=== PATIENT | female | born 1930 | race Caucasian/White ===

== ENCOUNTER 2016-08-20 15:36 | Emergency (ER) | payer MEDICARE, OTHER ==
[~2016-08-20] VITALS: Ht 162.6 cm; Wt 68.2 kg
[2016-08-20 15:39] VITALS: BP 152/79; PULSE 97; RESP 16; O2SAT 94
[2016-08-20] MEDS ORDERED: LEVO88TA4 PO (15:43)
[2016-08-20] MEDS ORDERED: AMT50T PO (15:43)
[2016-08-20] MEDS ORDERED: ATOR10TA66 PO (15:43)
[2016-08-20] MEDS ORDERED: 0.9% Sodium Chloride 1,000 ML IV ONE (17:33)
[2016-08-20 18:02] LABS: APPEARANCE,URINE CLEAR (CLEAR,HAZY); COLOR,URINE YELLOW (YELLOW); OCCULT BLOOD,URINE NEGATIVE (NEGATIVE); PH,URINE 5.5 (5.0-8.0); UROBILINOGEN,URINE NORMAL (NORMAL)
--- NOTE | 2016-08-20 18:17 | ED.REPORT ---
HPI-Abd Pain F 40 and Over Date of Service Aug 20, 2016 ED Provider: Dr. Davey Valentin D.O. An 85 year old female with a medical history including diverticulitis, hypertension, and hyperlipidemia presents to the ED with sharp LLQ abdominal pain onset 1600 yesterday afternoon. The patient also reports problems with chronic constipation. She denies nausea, vomiting, or other symptoms. The patient had an annual exam with her PCP last week, with normal blood work obtained. Her pain was moderately relieved with a bowel movement in the ED. Nursing Notes Stated Complaint: LEFT LOWER ABDOMINAL PAIN Chief Complaint: Female Abdominal Pain Nursing Notes Reviewed: Yes Allergies: Coded Allergies: codeine (Verified Allergy, Unknown, 08/20/16) Nightmares morphine (Verified Allergy, Unknown, 08/20/16) Pain in stomach Scheduled Amitriptyline (Amitriptyline) 50 Mg Tab 25 MG PO HS Atorvastatin Calcium (Atorvastatin Calcium) 10 Mg Tablet 10 MG PO DAILY Levothyroxine (Levothyroxine) 88 Mcg Tablet 88 MCG PO DAILY General Time Seen by MD: 18:17 Chief Complaint Abdominal pain Hx Obtained From: Patient Arrived By: Walk-in Sudden in Onset?: No Onset Occurred: Yesterday Symptom Duration: Since onset Location: : LLQ Quality: Painful Severity: Current: Moderate Severity: Maximum: Moderate Associated with: Reports: Constipation Pertinent Negative: Pt denies other symptoms Pertinent Negative: Relieved by nothing Context Related History: Reports: Abdominal surgery, Diverticulosis Recent Healthcare: Recent doctor visit Past Medical History Past Medical History Diverticulitis Hyperlipidemia TIA Cancer Hypertension Past Surgical History Tonsillectomy Cholecystectomy Breast Appendectomy Smoking History Never Smoker Social History Other Social History: From out of town, Local resident Ambulatory Status Independent Review of Systems Constitutional: Denies: Fever Respiratory: Denies: Non-productive cough, Shortness of breath GI: Reports: Abdominal pain (LLQ), Constipation (Chronic), Denies: Nausea, Vomiting Complete sys rev & neg: except as marked. Physical Exam Vital Signs Vital Signs (First) Date Time Temp Pulse Resp B/P Pulse Ox O2 Delivery O2 Flow Rate FiO2 08/20/16 15:39 36.4 97 16 152/79 94 Room Air Initial VS: Reviewed Head / Eyes: Atraumatic, Normocephalic ENT: Conjunctiva normal, No scleral icterus Neck: Supple, Full range of motion Skin: Warm, Dry, No cyanosis Neurologic: Alert, Oriented, Nonfocal Psychiatric: Mood/affect normal, Behavior normal, Normal thought content General/Constitutional: Awake, Alert, No acute distress Respiratory / Chest: Breath sounds NL, Breath sounds = bilat, No respiratory distress Cardiovascular: Heart rate NL, Regular rhythm, Heart sounds NL Abdomen: Soft Tenderness/Guarding/Rebound: Positive: Tender LLQ... Interpretation & Diagnostics Lab Results Interpretation Result Diagram: 08/20/16 1750 08/20/16 1750 Test 08/20/16 17:35 08/20/16 17:50 Urine Color Yellow (YELLOW) Urine Appearance Clear (CLEAR,HAZY) Urine pH 5.5 (5.0-8.0) Urine Specific [place] 1.020 (1.003-1.035) Urine Protein Negativemg/dL (NEG,TRACE) Urine Glucose (UA) Negativemg/dL (NEGATIVE) Urine Ketones Tracemg/dL (NEGATIVE) Urine Occult Blood Negative (NEGATIVE) Urine Nitrite Negative (NEGATIVE) Urine Bilirubin Negative (NEGATIVE) Urine Urobilinogen Normalmg/dL (NORMAL) Urine Leukocyte Esterase Small (NEGATIVE) Urine RBC 0-2/hpf (0-2) Urine WBC 6-10/hpf (0-5) Urine Epithelial Cells Moderate/hpf (NONE-MOD) Urine Crystals None seen (NONE SEEN) Urine Bacteria Few/hpf (NONE-FEW) Urine Hyaline Casts None/lpf (NONE) Urine Granular Casts None seen (NONE SEEN) Urine Waxy Casts None seen (NONE SEEN) Urine Red Blood Cell Casts None seen (NONE SEEN) Urine White Blood Cell Casts None seen (NONE SEEN) Urine Mucus None seen (None Seen) Urine Trichomonas None seen (NONE SEEN) Urine Yeast None (NONE SEEN) Urinalysis Comment None Urine Culture Reflexed Indicated White Blood Count 9.4th/mm3 (3.8-10.1) Red Blood Count 4.42mil/mm3 (3.90-5.20) Hemoglobin 14.0g/dL (12.0-15.6) Hematocrit 42.4% (35.0-46.0) Mean Corpuscular Volume 95.9fL (81-100) Mean Corpuscular Hemoglobin 31.7pg (27.0-35.0) Mean Corpuscular Hemoglobin Concent 33.0% (32.0-37.0) Red Cell Distribution Width 13.5% (12.3-15.4) Platelet Count 154bil/L (150-400) Neutrophils (%) (Auto) 65.4% (40-74) Lymphocytes (%) (Auto) 20.6% (14-46) Monocytes (%) (Auto) 12.3% (4-12) Eosinophils (%) (Auto) 1.2% (0-5) Basophils (%) (Auto) 0.2% (0-3) Sodium Level 137mEq/L (134-144) Potassium Level 3.9mEq/L (3.5-5.2) Chloride Level 99mEq/L (97-108) Carbon Dioxide Level 22mmol/L (18-29) Blood Urea Nitrogen 28mg/dL (8-27) Creatinine 1.24mg/dL (0.57-1.00) Estimat Glomerular Filtration Rate 59mL/min (>59) Glucose Level 110mg/dL (60-99) Calcium Level 9.9mg/dL (8.5-10.1) Magnesium Level 2.1mg/dL (1.6-2.6) Total Bilirubin 0.4mg/dL (0.0-1.2) Aspartate Amino Transf (AST/SGOT) 19U/L (0-50) Alanine Aminotransferase (ALT/SGPT) 14U/L (0-32) Alkaline Phosphatase 135U/L (25-165) Total Protein 7.1g/dL (6.4-8.4) Albumin 3.7g/dL (3.4-5.0) Lipase 18U/L (13-60) Hold Richardson Top Tube Received (Received) CT Abd / Pelvis Interpretation IMPRESSION: 1. Mild diverticulitis in the proximal sigmoid colon without evidence of diverticular abscess or macroscopic free air. 2. Small hiatal hernia. 3. Small 2 mm nonobstructing right renal stone. Dictated by: Gary Skinner M.D. on 08/20/2016 at 21:28 Study type: Abdominal CT no contrast Interpretation / Wet Read by: Interpret - Radiologist Re-Eval/Medical Decision Med Decision/Clinical Course Acute diverticulitis is seen on the CT scan. No perforation, abscess or free air. I discussed this with Shelbi initially I recommended admission. She states she feels much better when like to go home. She does agree to have follow-up within 48 hours. She has a normal white count. She is afebrile. Her abdomen is soft and is really no longer tender. She is not vomiting. I think that she is a good candidate for outpatient treatment. She did receive the first dose of IV antibiotics and emergency department. She was sent home with a dose of Cipro and Flagyl to be taken first thing in the morning and then a prescription for full 7 day course. I have her phone number I will call her tomorrow. Otherwise she is going to call her primary care to set up a follow- up for the next 48 hours. She is discharged home with a short course of [place] for pain with routine opiate warnings. She will also be a stool softener. If she has any problems come back to emergency department. Re-Evaluation/Progress : Time of Eval: 22:47 Patient Status: Condition improved Re-Evaluation/Progress Note: Discussed with patient CT and lab results, diagnosis, and plan for discharge. Follow-up and return to the ER instructions given. Patient agrees with plan for care and all questions were addressed. Counseled Regarding: Diagnosis, Lab results, Need for follow-up, When/why to return to ED Discharge & Departure Shift Change Sign-Out Response to Therapy: Improved Primary Impression: Diverticulitis Diverticulitis site: large intestine Diverticulitis bleeding: without bleeding Diverticulitis complication: without perforation or abscess Qualified Code: K57.32 - Diverticulitis of large intestine without perforation or abscess without bleeding Disposition: Home Discharge Condition All VS Reviewed: Yes Condition: Improved Patient Instructions: Diverticulitis (ED) Additional Instructions: Thank you for entrusting us with your care. Cipro twice daily for seven days, as prescribed. Flagyl three times daily for seven days, as prescribed. 1-2 [place] every six hours as needed for pain. Do not drink alcohol, drive, or consume acetaminophen while taking [place]. Begin using a stool softener and increase the fiber in your diet. Your labs indicated you were dehydrated. Please increase your liquid intake. You need to be seen in follow-up within 2-3 days. Call your primary care provider tomorrow for a follow-up appointment. Return to the ER with any new or worsening symptoms including fever, vomiting, or worsening pain. Referrals: Markos Reyes MD (PCP) Scribe Attestation Portions of this note were transcribed by Yvette Pereira. I, Dr. Valentin, personally performed the history, physical exam, and medical decision-making; I reviewed and confirmed the accuracy of the information in the transcribed note. Signed by: Zenobia Weston, 08/20/2016, 23:20 copies to: Markos Reyes MD, Todd P DO Aug 20, 2016 18:17 YVETTE PEREIRA Aug 20, 2016 18:24
[2016-08-20 18:45] LABS: BASOPHILS % (AUTO) 0.2 % (0-3); EOSINOPHILS % (AUTO) 1.2 % (0-5); MONOCYTES % (AUTO) 12.3 % (4-12); Mean Corpuscular Hemoglobin 31.7 pg (27.0-35.0); Mean Corpuscular Volume 95.9 fL (81-100); NEUTROPHILS % (AUTO) 65.4 % (40-74); Platelet Count 154 bil/L (150-400)
[2016-08-20 19:05] LABS: Magnesium 2.1 mg/dL (1.6-2.6)
[2016-08-20] MEDS ORDERED: Iohexol 300 mg/mL 30 mL Inj PO ONE (19:35)
--- NOTE | 2016-08-20 21:38 | DRSVH ---
PROCEDURE: CT ABDOMEN AND PELVIS WITHOUT CONTRAST ([id number]) INDICATIONS: LLQ pain, hx of diverticulitis TECHNIQUE: After the administration of oral contrast, 5 mm thick sections acquired from the diaphragms to the sy mphysis. 5 mm coronal and sagittal reformats were performed. For radiation dose reduction, the foll owing was used: automated exposure control, adjustment of mA and/or kV according to patient size. COMPARISON: None. FINDINGS: Image quality: Excellent. ABDOMEN: Lung bases: There is mild left basilar atelectasis. Heart size is normal. There is a small right he rnia. Solid organs: Liver and spleen are normal in size. Gallbladder is surgically absent. There is fatt y atrophy of the pancreas. No adrenal nodules. There is a small 2 mm nonobstructing right renal sto ne. Multiple bilateral parapelvic renal cysts are demonstrated. Peritoneum and bowel: Stomach and small bowel loops demonstrate normal wall thickness and caliber. T here is colonic diverticulosis with associated mild peridiverticular fat stranding in the left lower quadrant in the proximal sigmoid colon consistent with mild diverticulitis. There is mild segmental wall thickening in the sigmoid colon. No diverticular abscess or macroscopic free air. Nodes and vessels: No retroperitoneal or mesenteric adenopathy by size criteria. Aorta and inferior vena cava are normal in size. Miscellaneous: No ventral hernias. PELVIS: Genitourinary: Bladder wall thickness is normal. The uterus is surgically absent. Miscellaneous: No inguinal hernias or adenopathy. Bones: No suspicious bony lesions. No vertebral body compression fractures. IMPRESSION: 1. Mild diverticulitis in the proximal sigmoid colon without evidence of diverticular abscess or mac roscopic free air. 2. Small hiatal hernia. 3. Small 2 mm nonobstructing right renal stone. Dictated by: Gary Skinner M.D. on 08/20/2016 at 21:28 Approved by: Gary Skinner M.D. on 08/20/2016 at 21:36
[2016-08-20 21:46] VITALS: BP 147/65; PULSE 80; RESP 16; O2SAT 95
[2016-08-20] MEDS ORDERED: Piperacillin-Tazo 3.375 Gm Inj 3.375 GM in Dextrose 5% Minibag Plus 50 ML IV ONE (21:50)
[2016-08-20] MEDS ORDERED: _HYDROcodone/APAP 5-325 mg Tablet PO PRN (22:40)
[2016-08-20 23:27] VITALS: BP 143/64; PULSE 86; RESP 22; O2SAT 97
== END 2016-08-20 23:28 | disposition home or self-care (01) ==
LOC: SED 15:36
DX: K57.32 Diverticulitis of large intestine without perforation or abscess without bleeding (principal); I10 Essential (primary) hypertension; E78.5 Hyperlipidemia, unspecified; Z86.73 Personal history of transient ischemic attack (TIA), and cerebral infarction without residual deficits; Z90.49 Acquired absence of other specified parts of digestive tract; Z88.5 Allergy status to narcotic agent
CPT/HCPCS: 36415; 74176; 80053; 81000; 83690; 83735; 85025; 87086; 87088; 96361; 96365; 99285; J2543; J7030; Q9967

== ENCOUNTER 2016-08-24 11:04 | Emergency (ER) | payer MEDICARE, OTHER ==
[~2016-08-24] VITALS: Ht 162.6 cm; Wt 68.2 kg
[~2016-08-24 11:04] MED LIST: AMT50T PO; ATOR10TA66 PO; LEVO88TA4 PO
[2016-08-24 11:06] VITALS: BP 147/80; PULSE 88; RESP 16; O2SAT 97
--- NOTE | 2016-08-24 11:09 | ED.REPORT ---
HPI-GI Bleed Date of Service Aug 24, 2016 ED Provider: Tianna Pelaez MD Patient is an 85 year old female with a history of TIA, hypertension, and recurrent diverticulitis presenting to the ED complaining of black stool. The pt was diagnosed with diverticulitis recently and prescribed antibiotics with instructions for a liquid diet. She was feeling better the past few days while taking the antibiotics until she started having diarrhea and black stool two days ago. This has occurred 8-10 times in the last two days. The patient has also felt "fuzzy" and dizzy this morning and has been feeling weak and unsteady for three days. Per family, the patient was word searching this morning. She denies nausea, shortness of breath, back pain, chest pain, abdominal pain, or headache. The patient did not take any of her regular medications today, though she normally takes one 81mg of ASA per day. She denies any history of similar symptoms as well as any history of ulcers. Nursing Notes Stated Complaint: BLACK DIARRHEA,BLOOD IN URINE Chief Complaint: Female Abdominal Pain Nursing Notes Reviewed: Yes Allergies: Coded Allergies: codeine (Verified Allergy, Unknown, 08/20/16) Nightmares morphine (Verified Allergy, Unknown, 08/20/16) Pain in stomach Scheduled Amitriptyline (Amitriptyline) 50 Mg Tab 25 MG PO HS Atorvastatin Calcium (Atorvastatin Calcium) 10 Mg Tablet 10 MG PO DAILY Levothyroxine (Levothyroxine) 88 Mcg Tablet 88 MCG PO DAILY General Time Seen by Provider: 11:09 Chief Complaint Chief Complaint: Other (black stool) Hx Obtained From: Patient, Daughter Arrived By: Walk-in Onset Occurred: 2 days ago Symptom Duration: Since onset Recent Healthcare: No recent hospitalization, Recent doctor visit Similar Sx Previous: No Past Medical History Past Medical History Diverticulitis Hyperlipidemia TIA Cancer Hypertension Past Surgical History Tonsillectomy Cholecystectomy Breast Appendectomy Smoking History Former Smoker (quit 47 years ago) Social History Alcohol Use: "Social" Other Social History: Good social support Ambulatory Status Independent Review of Systems Review of Systems Note: black stool feels "fuzzy" unsteady Constitutional: Reports: Weakness - generalized Respiratory: Denies: Shortness of breath Cardiovascular: Denies: Chest pain GI: Reports: Diarrhea, Denies: Abdominal pain, Nausea Neurologic: Reports: Dizziness, Denies: Headache Complete sys rev & neg: except as marked. Physical Exam Initial Vital Signs Vital Signs (First) Date Time Temp Pulse Resp B/P Pulse Ox O2 Delivery O2 Flow Rate FiO2 08/24/16 11:06 36.4 88 16 147/80 97 08/24/16 13:24 Room Air Initial VS: Reviewed, Vital signs abnormal General/Constitutional: Awake, Alert, No acute distress Respiratory / Chest: Atraumatic, Breath sounds NL, Breath sounds = bilat, No respiratory distress Cardiovascular: Heart rate NL, Regular rhythm, Heart sounds NL Abdomen: Atraumatic, Soft, Non-tender Rectum / Perineum: Atraumatic, No gross blood stool was dark but hemoccult negative Head / Eyes: Atraumatic, Normocephalic, PERRL, EOMI ENT: Atraumatic, Airway patent, Mucous membranes moist Skin Skin: Atraumatic, Color NL, No rash, Warm, Dry Neurologic: Speech NL, No motor deficits, No sensory deficits oriented x4 Neck: Atraumatic, Supple, Full range of motion Back: Atraumatic, Full range of motion Upper Extremity / MS: Atraumatic, Full range of motion Lower Extremity / Pelvis / MS: Atraumatic, Full range of motion Psychiatric: Affect NL, Mood NL Interpretation & Diagnostics Lab Results Interpretation Result Diagram: 08/24/16 1130 08/24/16 1130 Test 08/24/16 11:30 08/24/16 13:47 White Blood Count 5.9th/mm3 (3.8-10.1) Red Blood Count 4.65mil/mm3 (3.90-5.20) Hemoglobin 14.6g/dL (12.0-15.6) Hematocrit 44.0% (35.0-46.0) Mean Corpuscular Volume 94.6fL (81-100) Mean Corpuscular Hemoglobin 31.4pg (27.0-35.0) Mean Corpuscular Hemoglobin Concent 33.2% (32.0-37.0) Red Cell Distribution Width 13.3% (12.3-15.4) Platelet Count 183bil/L (150-400) Neutrophils (%) (Auto) 66.8% (40-74) Lymphocytes (%) (Auto) 19.8% (14-46) Monocytes (%) (Auto) 11.7% (4-12) Eosinophils (%) (Auto) 0.8% (0-5) Basophils (%) (Auto) 0.7% (0-3) Sodium Level 139mEq/L (134-144) Potassium Level 3.9mEq/L (3.5-5.2) Chloride Level 102mEq/L (97-108) Carbon Dioxide Level 20mmol/L (18-29) Blood Urea Nitrogen 15mg/dL (8-27) Creatinine 1.06mg/dL (0.57-1.00) Estimat Glomerular Filtration Rate 71mL/min (>59) Glucose Level 145mg/dL (60-99) Calcium Level 9.9mg/dL (8.5-10.1) Magnesium Level 1.9mg/dL (1.6-2.6) Total Bilirubin 0.4mg/dL (0.0-1.2) Aspartate Amino Transf (AST/SGOT) 46U/L (0-50) Alanine Aminotransferase (ALT/SGPT) 60U/L (0-32) Alkaline Phosphatase 174U/L (25-165) Total Protein 7.6g/dL (6.4-8.4) Albumin 3.9g/dL (3.4-5.0) Hold Richardson Top Tube Received (Received) Urine Color Yellow (YELLOW) Urine Appearance Clear (CLEAR,HAZY) Urine pH 6.0 (5.0-8.0) Urine Specific [place] 1.020 (1.003-1.035) Urine Protein Negativemg/dL (NEG,TRACE) Urine Glucose (UA) Negativemg/dL (NEGATIVE) Urine Ketones Negativemg/dL (NEGATIVE) Urine Occult Blood Negative (NEGATIVE) Urine Nitrite Negative (NEGATIVE) Urine Bilirubin Negative (NEGATIVE) Urine Urobilinogen Normalmg/dL (NORMAL) Urine Leukocyte Esterase Trace (NEGATIVE) Urine RBC 0-2/hpf (0-2) Urine WBC 0-5/hpf (0-5) Urine Epithelial Cells Few/hpf (NONE-MOD) Urine Crystals None seen (NONE SEEN) Urine Bacteria None/hpf (NONE-FEW) Urine Hyaline Casts None/lpf (NONE) Urine Granular Casts None seen (NONE SEEN) Urine Waxy Casts None seen (NONE SEEN) Urine Red Blood Cell Casts None seen (NONE SEEN) Urine White Blood Cell Casts None seen (NONE SEEN) Urine Mucus None seen (None Seen) Urine Trichomonas None seen (NONE SEEN) Urine Yeast None (NONE SEEN) Urinalysis Comment None Urine Culture Reflexed Indicated Re-Eval/Medical Decision Med Decision/Clinical Course Patient has been on a clear liquid diet and was concerned because she is having black stool. Exam she does have dark stool however is Hemoccult negative hemoglobin is stable since her last visit. 5 use is likely related to her lack of by mouth intake. After fluids and food patient was feeling almost normal for her. Source of Hx: Old records Re-Evaluation/Progress : Time of Eval: 13:15 Patient Status: Condition improved Re-Evaluation/Progress Note: Patient rechecked, whose condition has improved. The diagnosis and plan for discharge are discussed. The pt understands and agrees with the plan. All questions are addressed at this time. Counseled Regarding: Diagnosis, Lab results, Need for follow-up, When/why to return to ED Discharge & Departure Impression: Primary Impression: Generalized weakness Disposition: Home Discharge Condition All VS Reviewed: Yes Condition: Stable Patient Instructions: Diverticulitis (ED), Diverticulitis Diet (ED), Diverticulosis Diet (ED) Additional Instructions: Your labs showed there was no sign of bleeding.You are able to return to a regular diet but stay away from small seeds given your diverticulitis. Continue to take antibiotics and drink fluids. Return to the emergency department if any new or worsening symptoms occur including fever and pain. Referrals: Markos Reyes MD (PCP) Scribe Attestation Portions of this note were transcribed by Reny Aparicio and Bull Rubin. I, Dr. Pelaez personally performed the history, physical exam and medical decision- making; I reviewed and confirmed the accuracy of the information in the transcribed note. Signed by: Reny Aparicio and Bull Rubin, [place], 08/24/16 and 1412. copies to: Markos Reyes MD, Jena M MD Aug 24, 2016 11:09 Yelena Aparicio Aug 24, 2016 11:35 BULL RUBIN Aug 24, 2016 12:24
[2016-08-24] MEDS ORDERED: 0.9% Sodium Chloride 1,000 ML IV ONE (11:30)
[2016-08-24 11:49] LABS: BASOPHILS % (AUTO) 0.7 % (0-3); EOSINOPHILS % (AUTO) 0.8 % (0-5); MONOCYTES % (AUTO) 11.7 % (4-12); Mean Corpuscular Hemoglobin 31.4 pg (27.0-35.0); Mean Corpuscular Volume 94.6 fL (81-100); NEUTROPHILS % (AUTO) 66.8 % (40-74); Platelet Count 183 bil/L (150-400)
[2016-08-24 12:21] LABS: Magnesium 1.9 mg/dL (1.6-2.6)
[2016-08-24 13:24] VITALS: BP 145/67; PULSE 94; RESP 16; O2SAT 98
[2016-08-24 13:41] VITALS: BP 145/67; PULSE 94; RESP 16; O2SAT 98
[2016-08-24 14:01] LABS: APPEARANCE,URINE CLEAR (CLEAR,HAZY); COLOR,URINE YELLOW (YELLOW); OCCULT BLOOD,URINE NEGATIVE (NEGATIVE); UROBILINOGEN,URINE NORMAL (NORMAL)
== END 2016-08-24 13:42 | disposition home or self-care (01) ==
LOC: SED 11:04
DX: R53.1 Weakness (principal); I10 Essential (primary) hypertension; Z86.73 Personal history of transient ischemic attack (TIA), and cerebral infarction without residual deficits; Z87.891 Personal history of nicotine dependence; Z85.9 Personal history of malignant neoplasm, unspecified; Z88.5 Allergy status to narcotic agent
CPT/HCPCS: 36415; 80053; 81000; 82948; 83735; 85025; 86850; 86870; 87086; 96360; 99284; J7030

== ENCOUNTER 2016-09-30 19:54 | Emergency (ER) | payer MEDICARE, OTHER ==
[~2016-09-30] VITALS: Ht 162.6 cm; Wt 68.2 kg
[2016-09-30 20:06] VITALS: PULSE 93; RESP 14; O2SAT 94
[2016-09-30 20:09] VITALS: BP 113/63
[2016-09-30 21:16] LABS: BASOPHILS % (AUTO) 0.2 % (0-3); EOSINOPHILS % (AUTO) 0.8 % (0-5); MONOCYTES % (AUTO) 16.1 % (4-12); Mean Corpuscular Hemoglobin 31.9 pg (27.0-35.0); Mean Corpuscular Volume 97.3 fL (81-100); NEUTROPHILS % (AUTO) 67.4 % (40-74); Platelet Count 201 bil/L (150-400)
--- NOTE | 2016-09-30 21:21 | ED.REPORT ---
HPI-General Illness Date of Service September 30, 2016 ED Provider: Clovis Ritter MD The patient is a 85 year old female w/ a hx of recurrent diverticulitis, hyperlipidemia, TIA, cancer, and HTN who presents to the ED due to increasingly worsening diarrhea over the past week. On 09/17/16, she was diagnosed with diverticulitis and was put on 3 courses of antibiotics. She just finished the last course of antibiotics today. She is at the ED due to worsening diarrhea and associated weakness. The pt lives alone. She has not been eating as much but has been able to keep down some fluids. She denies fevers, abd pain, nausea , vomiting, and hematochezia. She was last seen at the ED on 08/24/16 c/o black stool. At the time, her lab results were unremarkable and she was advised to continue her course of Cipro and Flagyl. Nursing Notes Stated Complaint: ABDOMINAL PAIN Chief Complaint: General Complaint Nursing Notes Reviewed: Yes Allergies: Coded Allergies: codeine (Verified Allergy, Unknown, 08/20/16) Nightmares morphine (Verified Allergy, Unknown, 08/20/16) Pain in stomach Scheduled Amitriptyline (Amitriptyline) 50 Mg Tab 25 MG PO HS Atorvastatin Calcium (Atorvastatin Calcium) 10 Mg Tablet 10 MG PO DAILY Levothyroxine (Levothyroxine) 88 Mcg Tablet 88 MCG PO DAILY Metronidazole (Flagyl) 500 Mg Tablet 500 MG PO Q8H General Time Seen by MD: 21:19 Chief Complaint Diarrhea Hx Obtained From: Patient Arrived By: Walk-in Sudden in Onset?: Yes Onset Occurred: 1 week ago Symptom Duration: Since onset Location: No: Eye left Severity: Current: No pain currently Recent Healthcare: Recent doctor visit Similar Sx Previous: Yes Past Medical History Past Medical History Diverticulitis Hyperlipidemia TIA Cancer Hypertension Past Surgical History Tonsillectomy Cholecystectomy Breast Appendectomy Smoking History Former Smoker Social History Alcohol Use: "Social" Other Social History: Good social support Ambulatory Status Independent Review of Systems Full Review of Systems Constitutional: Reports: Weakness - generalized, Denies: Fever GI: Reports: Diarrhea, Denies: Abdominal pain, Hematochezia, Nausea, Vomiting Complete sys rev & neg: except as marked. Physical Exam Vital Signs Vital Signs Date Time Temp Pulse Resp B/P Pulse Ox O2 Delivery O2 Flow Rate FiO2 10/01/16 01:17 36.9 92 16 118/74 98 Room Air 09/30/16 20:09 113/63 09/30/16 20:06 36.6 93 14 94 Room Air Initial VS: Reviewed Abdomen: BS normoactive mild tenderness to deep palpation in lower quadrant Interpretation & Diagnostics Lab Results Interpretation Result Diagram: 09/30/16204409/30/162044 Test 09/30/16 20:45 09/30/16 22:07 White Blood Count 10.2th/mm3 (3.8-10.1) Red Blood Count 4.04mil/mm3 (3.90-5.20) Hemoglobin 12.9g/dL (12.0-15.6) Hematocrit 39.3% (35.0-46.0) Mean Corpuscular Volume 97.3fL (81-100) Mean Corpuscular Hemoglobin 31.9pg (27.0-35.0) Mean Corpuscular Hemoglobin Concent 32.8% (32.0-37.0) Red Cell Distribution Width 13.4% (12.3-15.4) Platelet Count 201bil/L (150-400) Neutrophils (%) (Auto) 67.4% (40-74) Lymphocytes (%) (Auto) 15.2% (14-46) Monocytes (%) (Auto) 16.1% (4-12) Eosinophils (%) (Auto) 0.8% (0-5) Basophils (%) (Auto) 0.2% (0-3) Hold Purple Top Tube Received (Received) Hold Blue Top Tube Received (Received) Sodium Level 133mEq/L (134-144) Potassium Level 3.9mEq/L (3.5-5.2) Chloride Level 96mEq/L (97-108) Carbon Dioxide Level 25mmol/L (18-29) Blood Urea Nitrogen 13mg/dL (8-27) Creatinine 0.91mg/dL (0.57-1.00) Estimat Glomerular Filtration Rate 84mL/min (>59) Glucose Level 140mg/dL (60-99) Calcium Level 9.3mg/dL (8.5-10.1) Magnesium Level 1.8mg/dL (1.6-2.6) Total Bilirubin 0.3mg/dL (0.0-1.2) Aspartate Amino Transf (AST/SGOT) 19U/L (0-50) Alanine Aminotransferase (ALT/SGPT) 14U/L (0-32) Alkaline Phosphatase 107U/L (25-165) Total Protein 6.2g/dL (6.4-8.4) Albumin 3.2g/dL (3.4-5.0) Lipase 12U/L (13-60) Hold Gillett Top Tube Received (Received) Hold Richardson Top Tube Received (Received) Hold Urine Received (Received) Re-Eval/Medical Decision Med Decision/Clinical Course 85-year-old with recent diverticulitis presents with diarrhea after several courses of antibiotics. Risk for C. difficile is high. Stool was obtained and sent for anticipated results tomorrow. Begun empirically with Flagyl pending results. Discharged in stable condition. No significant dehydration and she is able tolerate fluids at this point. Electrolyte replacement fluid recommended. She has been using liquid supplements such as boost, and this may also exacerbate diarrhea, or may even just be the primary cause. Flagyl can be discontinued if C. difficile studies are negative. Counseled Regarding: Diagnosis, Lab results, Need for follow-up Discharge & Departure Primary Impression: Clostridium difficile diarrhea Additional Impression: Diarrhea Disposition: Home Discharge Condition All VS Reviewed: Yes Condition: Stable Additional Instructions: It seems entirely likely that you have a superinfection of your colon with Clostridium difficile. This is very common after antibiotics. We have a sample and will have an answer midmorning tomorrow. In the meantime, we can start Flagyl as the treatment for C. difficile. Your doctor will have access to the lab results mid day tomorrow. Contact him tomorrow afternoon for further instructions. In the meantime, keep your fluid intake up with electrolyte replacement solution , such as Gatorade, Powerade, or Pedialyte. I would avoid boost and other liquid supplements, as they can also prolong diarrhea, due to the heavy sugar concentration. Return if you see any bleeding, develop a fever, or have any other new symptoms of concern. Referrals: Markos Reyes MD (PCP) Scribe Attestation Portion of this note were transcribed by Tasia Quinones. I, Dr. Clovis Ritter, personally performed the history, physical exam, and medical decision- making: I reviewed and confirmed the accuracy for the information in the transcribed note. Signed by: senia Ryan, 09/30/16 [id number] copies to: Markos Reyes MD, Christopher W MD September 30, 2016 21:21 Tasia Quinones September 30, 2016 21:51
[2016-09-30 21:27] LABS: Magnesium 1.8 mg/dL (1.6-2.6)
[2016-09-30] MEDS ORDERED: 0.9% Sodium Chloride 1,000 ML IV ONE (23:15)
[2016-10-01] MEDS ORDERED: METR500T PO (00:01)
[2016-10-01] MEDS ORDERED: Bismuth Subsalicylate 240 mL Suspension PO ONE (00:05)
[2016-10-01 01:17] VITALS: BP 118/74; PULSE 92; RESP 16; O2SAT 98
== END 2016-10-01 01:00 | disposition home or self-care (01) ==
LOC: SED 19:54 → EDUNIT# 19:54 → EDBD 19:54 → SED 10-01 01:00
DX: A04.7 Enterocolitis due to Clostridium difficile (principal); E78.5 Hyperlipidemia, unspecified; I10 Essential (primary) hypertension; Z87.891 Personal history of nicotine dependence; Z88.8 Allergy status to other drugs, medicaments and biological substances
CPT/HCPCS: 36415; 80053; 83690; 83735; 85025; 87507; 96360; 99284; J7030